=== PATIENT | female | born 1960 | race Caucasian/White ===

== ENCOUNTER 2021-10-26 07:52 | Day surgery (SDC) | payer BC ==
[~2021-10-26] VITALS: Ht 160 cm; Wt 64.4 kg
[2021-10-26] MEDS ORDERED: MEPERIDINE 100 MG INJ. 100 MG/ML VIAL ONE (10:18)
[2021-10-26] MEDS ORDERED: MIDAZOLAM HCL 5 MG/5 ML VIAL ONE (10:19)
[2021-10-26 14:34] VITALS: BP_SYST 94
== END 2021-10-26 11:45 | disposition home or self-care (01) ==
LOC: SDS 07:52
PROVIDERS: ATTEND Internal Medicine Gastroenterology
DX: Z12.11 Encounter for screening for malignant neoplasm of colon (principal); K64.8 Other hemorrhoids; K60.2 Anal fissure, unspecified; Z86.010 Personal history of colon polyps; Z79.899 Other long term (current) drug therapy; Z20.822 Contact with and (suspected) exposure to COVID-19
CPT/HCPCS: 45378; 87426; 36415; 99152; G0378; J2250; J2175